=== PATIENT | male | born 1960 | race Caucasian/White ===

== ENCOUNTER 2020-05-19 06:05 | Emergency (ER) | payer BC, OTHER ==
[~2020-05-19] VITALS: Ht 167.7 cm; Wt 91.4 kg
[~2020-05-19 06:05] MED LIST: OXYC-12 PO
[2020-05-19 06:19] VITALS: BP 141/79
[2020-05-19] MEDS ORDERED: IBUP-1780 PO (06:28)
--- NOTE | 2020-05-19 06:29 | ED Chest Pain ---
General Chief Complaint: Chest Wall Stated Complaint: FALL, SIDE PAIN Nursing Triage Note: pt states he tripped in the dark this morning walking to his truck and struck fire pit causing right anterior chest wall pain Nursing Sepsis Screen: No Definite Risk Source: patient Exam Limitations: no limitations History of Present Illness Date Seen by Provider: May 19, 2020 Time Seen by Provider: 06:20 Initial Comments 59 y/o male states he was "stepping out of his trailer this morning and fell onto his fire pit, landing on his right chest". Pain in that area, worse w movement or to touch. Denies other pain or injury. No recent illness. NO SOA or cough. No signif. PMHx Allergies and Home Medications Allergies Coded Allergies: No Known Drug Allergies (Unverified , 01/06/14) Home Medications Ibuprofen 800 Mg Tablet, 800 MG PO Q8H PRN for PAIN Prescribed by: JOSUE QUEEN on 05/19/20 0628 Oxycodone Hcl/Acetaminophen 1 Each Tablet, 1-2 EACH PO Q4H PRN for PAIN Prescribed by: PRINCESS CHAVES on 01/06/14 1907 Patient Home Medication List Home Medication List Reviewed: Yes Review of Systems Review of Systems Constitutional: No chills, No dizziness, No fever, No malaise, No weakness Respiratory: See HPI; Denies Cough, Denies Shortness of Air, Denies SOA at Rest, Denies Stridor, Denies Wheezing Cardiovascular: Denies See HPI; Chest Pain (R chest only, area of injury); Denies Edema, Denies Lightheadedness, Denies Palpitations, Denies Syncope Gastrointestinal: No Symptoms Reported Musculoskeletal: see HPI; No back pain, No joint pain, No neck pain Skin: No change in color, No lesions, No lumps, No rash Past [id number] Hx Past Med/Social Hx: Reviewed Nursing Past Med/Soc Hx Patient Social History Alcohol Use: Denies Use Recreational Drug Use: No Smoking Status: Never a Smoker 2nd Hand Smoke Exposure: No Recent Foreign Travel: No Contact w/Someone Who Travel: No Recent Infectious Disease Expo: No Recent Hopitalizations: No Physical Abuse: No Sexual Abuse: No Mistreated: No Fear: No Immunizations Up To Date Tetanus Booster (TDap): Unknown Seasonal Allergies Seasonal Allergies: No Past Medical History Surgeries: Yes (HERNIA 20 YEARS AGO) Respiratory: No Cardiac: No Neurological: No Reproductive Disorders: No Genitourinary: No Gastrointestinal: No Musculoskeletal: No Endocrine: No Cancer: No Psychosocial: No Integumentary: No Blood Disorders: No Adverse Reaction/Blood Tranf: No Physical Exam Vital Signs Vital Signs - First Documented 05/19/20 06:19 Temp 36.3 Pulse 65 Resp 18 B/P (MAP) 141/79 (99) Pulse Ox 97 O2 Delivery Room Air Capillary Refill : Less Than 3 Seconds Height, Weight, BMI Height: 5'8" Weight: 200lbs. oz. [id number]; 32.00 BMI Method:Stated General Appearance: No Apparent Distress, WD/WN Respiratory: No Lungs Clear; Normal Breath Sounds, No Accessory Muscle Use, No Respiratory Distress, Other (Tenderness to Palpation area of injury Right ant chest. NO Tenderness of lateral compression of same ribs. No post rib pain. No ecchymosis or abrasion. ) Cardiovascular: Regular Rate, Rhythm, No Edema, No JVD, Normal Peripheral Pulses Neurologic/Psychiatric: Alert, Oriented x3, Normal Mood/Affect Skin: Normal Color, Warm/Dry; No Rash Progress/Results/Core Measures Results/Orders Vital Signs/I&O 05/19/20 06:19 Temp 36.3 Pulse 65 Resp 18 B/P (MAP) 141/79 (99) Pulse Ox 97 O2 Delivery Room Air Blood Pressure Mean: 99 Departure Impression Primary Impression: Contusion of chest wall Qualified Codes: S20.211A - Contusion of right front wall of thorax, initial encounter Disposition: HOME, SELF-CARE Condition: Stable Departure-Patient Inst. Decision time for Depature: 06:27 Referrals: NO,LOCAL PHYSICIAN (PCP/Family) Primary Care Physician Patient Instructions: Bruised Rib (DC) Add. Discharge Instructions: Establish a Primary Doctor for follow up care in 1-2 weeks if not improving, sooner if worse All discharge instructions reviewed with patient and/or family. Voiced understanding. Scripts Ibuprofen (Ibuprofen) 800 Mg Tablet 800 MG PO Q8H PRN for PAIN, #30 TAB 0 Refills Prov: JOSUE QUEEN DO 05/19/20 Work/School Note: Work Release Form Date Seen in the Emergency Department: May 19, 2020 Return to Work: May 19, 2020 JOSUE QUEEN DO May 19, 2020 06:29
--- NOTE | 2020-05-19 06:30 | NUR ---
ice pack given to pt.
== END 2020-05-19 06:30 | disposition home or self-care (01) ==
LOC: EDUNIT# 06:05 → ER FS 06:13
DX: S20.211A Contusion of right front wall of thorax, initial encounter (principal); V48.4XXA Person boarding or alighting a car injured in noncollision transport accident, initial encounter
CPT/HCPCS: 99281